=== PATIENT | female | born 1985 | race Caucasian/White ===

== ENCOUNTER 2022-07-20 20:29 | Outpatient (CLI) | payer OTHER, SELFPAY | END 2022-07-20 20:30 | disposition home or self-care (01) | LOC: AMB 07-25 14:27 | PROVIDERS: Visit Provider Emergency Medicine Emergency Medical Services | DX: S19.9XXA Unspecified injury of neck, initial encounter (principal); R20.0 Anesthesia of skin; V43.52XA Car driver injured in collision with other type car in traffic accident, initial encounter; Y92.411 Interstate highway as the place of occurrence of the external cause | CPT/HCPCS: A0425; A0429 ==